=== PATIENT | male | born 1960 | race Caucasian/White ===

== ENCOUNTER 2021-08-31 17:46 | Inpatient (IN) | payer OTHER ==
[~2021-08-31] VITALS: Ht 182.9 cm; Wt 72.1 kg
[2021-08-31 17:50] VITALS: BP_SYST 147
[2021-08-31] MEDS ORDERED: ONDANSETRON HCL 4 MG/2 ML VIAL IVP ONE ×2 (19:15)
[2021-08-31] MEDS ORDERED: MAG HYDROX/AL HYDROX/SIMETH 30 ML, LIDOCAINE VISCOUS 2% 15ML (PO) 15 ML, DICYCLOMINE HC... PO ONE ×3 (19:15)
[2021-08-31 19:25] LABS: BASOPHILS % (AUTO) 0.5 % (0.0-2.0); EOSINOPHILS # (AUTO) 0.2 K/uL (0.0-0.4); EOSINOPHILS % (AUTO) 2.3 % (0.0-4.0); HEMATOCRIT 40.7 % (36-54); HEMOGLOBIN 13.8 g/dL (14.0-18.0); LYMPHOCYTES # (AUTO) 1.7 K/uL (1.0-5.5); LYMPHOCYTES % (AUTO) 23.9 % (20.5-51.5); MEAN CORPUSCULAR HEMOGLOBIN 30 pg (27-31); MEAN CORPUSCULAR HGB CONC 34 % (32-36); MEAN CORPUSCULAR VOLUME 87 fL (79.0-98.0); MONOCYTES # (AUTO) 0.6 K/uL (0.0-1.0); MONOCYTES % (AUTO) 8.9 % (1.7-9.3); NEUTROPHILS # (AUTO) 4.6 K/uL (1.8-7.7); NEUTROPHILS % (AUTO) 64.4 % (40.0-70.0); PLATELET COUNT (AUTO) 176 K/uL (130-430); RED BLOOD CELL COUNT(AUTO) 4.65 MIL/uL (4.2-6.2); RED CELL DISTRIBUTION WIDTH 13.5 % (9.0-15.0); WHITE BLOOD COUNT (AUTO) 7.2 K/uL (4.8-10.8)
[2021-08-31 19:51] LABS: ANION GAP 7 (5-15); CALCIUM 9.4 mg/dL (8.4-11.0); CHLORIDE 102 mmol/L (98-107); CREATININE 1.06 mg/dL (0.55-1.30); GLUCOSE 123 mg/dL (70-99); POTASSIUM 3.7 mmol/L (3.5-5.1); SODIUM SERUM 139 mmol/L (136-145); UREA NITROGEN, BLOOD 16 mg/dL (8-21)
[2021-08-31 19:53] LABS: GFR AFRICAN AMERICAN 92 mL/min (>90)
[2021-08-31 20:02] LABS: ALANINE AMINOTRANSFERASE 16 U/L (12-78); ALBUMIN 3.7 g/dL (3.4-4.8); ASPARTATE AMINOTRANSFERASE 20 U/L (10-37); TOTAL BILIRUBIN 0.7 mg/dL (0.0-1.0)
[2021-08-31 20:46] LABS: PROTHROMBIN TIME 9.7 SECS (9.5-12.5)
[2021-08-31] MEDS ORDERED: cloNIDine HCL 0.1 MG TABLET PO PRN (23:15)
[2021-08-31] MEDS ORDERED: ONDANSETRON HCL 4 MG/2 ML VIAL ONE (23:26)
[2021-08-31] MEDS: KETOROLAC TROMETHAMINE 15 MG VIAL IVP PRN (23:45)
[2021-09-01] MEDS ORDERED: METF-518 PO (00:27)
[2021-09-01] MEDS ORDERED: ASPI-1155 PO (00:27)
[2021-09-01] MEDS ORDERED: VITD2000 PO (00:27)
[2021-09-01] MEDS ORDERED: LIP20 PO (00:27)
[2021-09-01] MEDS ORDERED: LOSA50TA3 PO (00:27)
[2021-09-01 02:06] VITALS: BP_SYST 146
[2021-09-01] MEDS: ONDANSETRON HCL 4 MG/2 ML VIAL IVP PRN ×3 (02:27→20:28)
[2021-09-01 08:10] VITALS: BP_SYST 150
[2021-09-01] MEDS: ASPIRIN 81 MG TAB.CHEW PO SCH (08:30)
[2021-09-01] MEDS: ATORVASTATIN 20 MG TABLET PO SCH (08:31)
[2021-09-01] MEDS: LOSARTAN POTASSIUM 50 MG TABLET (COZAAR) PO SCH (08:31)
[2021-09-01] MEDS: PANTOPRAZOLE SODIUM 40 MG/VIAL (PROTONIX) IVP SCH (08:33)
[2021-09-01 12:05] VITALS: BP_SYST 146
[2021-09-01] MEDS: KETOROLAC TROMETHAMINE 15 MG VIAL IVP PRN ×2 (13:12→20:29)
[2021-09-01] MEDS ORDERED: NALOXONE HCL 0.4 MG/ML AMP (NARCAN) IVP PRN (14:00)
[2021-09-01] MEDS ORDERED: ACETAMINOPHEN 325 MG TABLET PO PRN (14:00)
[2021-09-01] MEDS ORDERED: DEXTROSE 50% JECT 50 ML DISP.SYRIN IVP PRN (14:00)
[2021-09-01] MEDS ORDERED: ONDANSETRON HCL 4 MG/2 ML VIAL IVP PRN (14:00)
[2021-09-01] MEDS ORDERED: iohexoL 350 mgI/mL, 100 ML INFUS..BTL IV ONE (14:03)
[2021-09-01 16:05] VITALS: BP_SYST 145
[2021-09-01] MEDS: INSULIN REGULAR, HUMAN 100 UNITS/ML, 10 ML VIAL (humuLIN R) SUBCUT PRN ×2 (17:01→20:45)
[2021-09-01 20:05] VITALS: BP_SYST 143
[2021-09-02 00:30] VITALS: BP_SYST 126
[2021-09-02] MEDS: MORPHINE 4 MG INJ. 4 MG/ML VIAL IVP PRN (04:51)
[2021-09-02] MEDS: ONDANSETRON HCL 4 MG/2 ML VIAL IVP PRN ×3 (04:51→22:45)
[2021-09-02 06:06] LABS: EOSINOPHILS # (AUTO) 0.2 K/uL (0.0-0.4); HEMATOCRIT 39.6 % (36-54); HEMOGLOBIN 13.4 g/dL (14.0-18.0); LYMPHOCYTES # (AUTO) 1.3 K/uL (1.0-5.5); LYMPHOCYTES % (AUTO) 26.3 % (20.5-51.5); MEAN CORPUSCULAR HEMOGLOBIN 30 pg (27-31); MEAN CORPUSCULAR HGB CONC 34 % (32-36); MEAN CORPUSCULAR VOLUME 88 fL (79.0-98.0); MONOCYTES # (AUTO) 0.5 K/uL (0.0-1.0); MONOCYTES % (AUTO) 9.1 % (1.7-9.3); NEUTROPHILS % (AUTO) 59.6 % (40.0-70.0); PLATELET COUNT (AUTO) 159 K/uL (130-430); RED BLOOD CELL COUNT(AUTO) 4.52 MIL/uL (4.2-6.2); RED CELL DISTRIBUTION WIDTH 13.4 % (9.0-15.0)
[2021-09-02 06:27] LABS: ALBUMIN 3.2 g/dL (3.4-4.8); CALCIUM 9.1 mg/dL (8.4-11.0); CREATININE 0.99 mg/dL (0.55-1.30); POTASSIUM 3.9 mmol/L (3.5-5.1); TOTAL BILIRUBIN 0.6 mg/dL (0.0-1.0)
[2021-09-02] MEDS: ATORVASTATIN 20 MG TABLET PO SCH (08:08)
[2021-09-02] MEDS: ASPIRIN 81 MG TAB.CHEW PO SCH (08:08)
[2021-09-02] MEDS: LOSARTAN POTASSIUM 50 MG TABLET (COZAAR) PO SCH (08:09)
[2021-09-02] MEDS: PANTOPRAZOLE SODIUM 40 MG/VIAL (PROTONIX) IVP SCH (08:09)
[2021-09-02 08:10] VITALS: BP_SYST 136
[2021-09-02 11:43] VITALS: BP_SYST 122
[2021-09-02] MEDS: INSULIN REGULAR, HUMAN 100 UNITS/ML, 10 ML VIAL (humuLIN R) SUBCUT PRN (11:49)
[2021-09-02 15:43] VITALS: BP_SYST 148
[2021-09-02 20:00] VITALS: BP_SYST 139
[2021-09-03] VITALS: BP_SYST 126
[2021-09-03 04:00] VITALS: BP_SYST 119
[2021-09-03 06:57] LABS: BASOPHILS % (AUTO) 0.7 % (0.0-2.0); EOSINOPHILS # (AUTO) 0.2 K/uL (0.0-0.4); EOSINOPHILS % (AUTO) 3.4 % (0.0-4.0); HEMATOCRIT 41.3 % (36-54); HEMOGLOBIN 14.1 g/dL (14.0-18.0); LYMPHOCYTES # (AUTO) 1.2 K/uL (1.0-5.5); LYMPHOCYTES % (AUTO) 23.8 % (20.5-51.5); MEAN CORPUSCULAR HEMOGLOBIN 30 pg (27-31); MEAN CORPUSCULAR HGB CONC 34 % (32-36); MEAN CORPUSCULAR VOLUME 87 fL (79.0-98.0); MONOCYTES # (AUTO) 0.5 K/uL (0.0-1.0); MONOCYTES % (AUTO) 9.1 % (1.7-9.3); NEUTROPHILS # (AUTO) 3.3 K/uL (1.8-7.7); PLATELET COUNT (AUTO) 157 K/uL (130-430); RED BLOOD CELL COUNT(AUTO) 4.72 MIL/uL (4.2-6.2); WHITE BLOOD COUNT (AUTO) 5.2 K/uL (4.8-10.8)
[2021-09-03 07:25] LABS: PROTHROMBIN TIME 9.9 SECS (9.5-12.5)
[2021-09-03 08:05] LABS: ALBUMIN 3.3 g/dL (3.4-4.8); CALCIUM 9.3 mg/dL (8.4-11.0); CREATININE 1.06 mg/dL (0.55-1.30); POTASSIUM 4.2 mmol/L (3.5-5.1); TOTAL BILIRUBIN 0.6 mg/dL (0.0-1.0)
[2021-09-03] MEDS: ASPIRIN 81 MG TAB.CHEW PO SCH (09:00)
[2021-09-03] MEDS: LOSARTAN POTASSIUM 50 MG TABLET (COZAAR) PO SCH (09:00)
[2021-09-03] MEDS: ATORVASTATIN 20 MG TABLET PO SCH (09:00)
[2021-09-03 09:12] VITALS: BP_SYST 140
[2021-09-03] MEDS: PANTOPRAZOLE SODIUM 40 MG/VIAL (PROTONIX) IVP SCH (09:44)
[2021-09-03] MEDS: ONDANSETRON HCL 4 MG/2 ML VIAL IVP PRN ×2 (09:44→22:37)
[2021-09-03] MEDS: MORPHINE 2 MG/ML INJ. SYRINGE IVP PRN (09:45)
[2021-09-03] MEDS ORDERED: SIMETHICONE 40 MG/0.6 ML ML PO ONE (13:00)
[2021-09-03] MEDS ORDERED: MIDAZOLAM HCL 5 MG/5 ML VIAL ONE (13:31)
[2021-09-03] MEDS ORDERED: MEPERIDINE 100 MG INJ. 100 MG/ML VIAL ONE (13:31)
[2021-09-03 15:58] VITALS: BP_SYST 151
[2021-09-03] MEDS ORDERED: DIATR MEGLU/DIATRIZ SOD 30 ML SOLUTION PO ONE (17:00)
[2021-09-03 20:00] VITALS: BP_SYST 141
[2021-09-04 08:15] VITALS: BP_SYST 131
[2021-09-04] MEDS: PANTOPRAZOLE SODIUM 40 MG/VIAL (PROTONIX) IVP SCH (09:32)
[2021-09-04] MEDS: LOSARTAN POTASSIUM 50 MG TABLET (COZAAR) PO SCH (09:33)
[2021-09-04] MEDS: ASPIRIN 81 MG TAB.CHEW PO SCH (09:33)
[2021-09-04] MEDS: ATORVASTATIN 20 MG TABLET PO SCH (09:33)
[2021-09-04] MEDS: MORPHINE 4 MG INJ. 4 MG/ML VIAL IVP PRN ×2 (09:35→23:23)
[2021-09-04] MEDS ORDERED: TAMSULOSIN HCL 0.4 MG CAP PO ONE (11:15)
[2021-09-04] MEDS: METOCLOPRAMIDE HCL 10 MG TABLET PO SCH ×3 (11:34→21:00)
[2021-09-04] MEDS: INSULIN REGULAR, HUMAN 100 UNITS/ML, 10 ML VIAL (humuLIN R) SUBCUT PRN ×2 (12:44→17:32)
[2021-09-04 16:55] VITALS: BP_SYST 128
[2021-09-04] MEDS ORDERED: BISACODYL 5 MG TABLET.DR (DULCOLAX) PO ONE (17:30)
[2021-09-04] MEDS ORDERED: GOLYTELY / COLYTE SOLUTION 4 LITERS PO ONE (18:00)
[2021-09-04 20:00] VITALS: BP_SYST 125
[2021-09-04] MEDS: PANTOPRAZOLE SODIUM 40 MG TAB PO SCH (21:00)
[2021-09-04] MEDS: ONDANSETRON HCL 4 MG/2 ML VIAL IVP PRN (23:23)
[2021-09-05 01:57] VITALS: BP_SYST 115
[2021-09-05 04:00] VITALS: BP_SYST 120
[2021-09-05] MEDS: METOCLOPRAMIDE HCL 10 MG TABLET PO SCH ×4 (04:51→21:55)
[2021-09-05] MEDS: INSULIN REGULAR, HUMAN 100 UNITS/ML, 10 ML VIAL (humuLIN R) SUBCUT PRN ×3 (06:52→22:03)
[2021-09-05] MEDS ORDERED: SIMETHICONE 40 MG/0.6 ML ML ONE (06:56)
[2021-09-05] MEDS ORDERED: fentaNYL CITRATE/PF 100 MCG/2 ML AMP ONE (06:56)
[2021-09-05] MEDS ORDERED: MIDAZOLAM HCL 5 MG/5 ML VIAL ONE (06:58)
[2021-09-05 07:00] LABS: BASOPHILS % (AUTO) 0.8 % (0.0-2.0); EOSINOPHILS # (AUTO) 0.2 K/uL (0.0-0.4); HEMATOCRIT 42.8 % (36-54); HEMOGLOBIN 14.6 g/dL (14.0-18.0); LYMPHOCYTES # (AUTO) 1.5 K/uL (1.0-5.5); LYMPHOCYTES % (AUTO) 29.8 % (20.5-51.5); MEAN CORPUSCULAR HEMOGLOBIN 30 pg (27-31); MEAN CORPUSCULAR HGB CONC 34 % (32-36); MEAN CORPUSCULAR VOLUME 88 fL (79.0-98.0); MONOCYTES # (AUTO) 0.6 K/uL (0.0-1.0); NEUTROPHILS # (AUTO) 2.9 K/uL (1.8-7.7); NEUTROPHILS % (AUTO) 55.4 % (40.0-70.0); PLATELET COUNT (AUTO) 161 K/uL (130-430); RED BLOOD CELL COUNT(AUTO) 4.89 MIL/uL (4.2-6.2); RED CELL DISTRIBUTION WIDTH 13.3 % (9.0-15.0); WHITE BLOOD COUNT (AUTO) 5.2 K/uL (4.8-10.8)
[2021-09-05] MEDS ORDERED: MEPERIDINE 100 MG INJ. 100 MG/ML VIAL ONE (07:43)
[2021-09-05 07:46] LABS: CALCIUM 9.2 mg/dL (8.4-11.0); CREATININE 1.07 mg/dL (0.55-1.30)
[2021-09-05 07:52] LABS: PROTHROMBIN TIME 10.2 SECS (9.5-12.5)
[2021-09-05 08:40] VITALS: BP_SYST 117
[2021-09-05] MEDS: PANTOPRAZOLE SODIUM 40 MG TAB PO SCH ×2 (09:00→21:55)
[2021-09-05] MEDS: LOSARTAN POTASSIUM 50 MG TABLET (COZAAR) PO SCH (09:00)
[2021-09-05] MEDS: TAMSULOSIN HCL 0.4 MG CAP PO SCH (09:00)
[2021-09-05] MEDS: ATORVASTATIN 20 MG TABLET PO SCH (09:00)
[2021-09-05] MEDS: ASPIRIN 81 MG TAB.CHEW PO SCH (09:00)
[2021-09-05 12:00] VITALS: BP_SYST 118
[2021-09-05] MEDS: ONDANSETRON HCL 4 MG/2 ML VIAL IVP PRN (13:01)
[2021-09-05] MEDS: MORPHINE 4 MG INJ. 4 MG/ML VIAL IVP PRN (13:03)
[2021-09-05 16:00] VITALS: BP_SYST 120
[2021-09-05] MEDS ORDERED: PRO40 PO (16:46)
[2021-09-05] MEDS ORDERED: TAMS0.4C96 PO (16:46)
[2021-09-05] MEDS ORDERED: METO-290 PO (16:46)
[2021-09-05 20:00] VITALS: BP_SYST 127
[2021-09-05] MEDS: MORPHINE 2 MG/ML INJ. SYRINGE IVP PRN (22:05)
[2021-09-06] VITALS: BP_SYST 109
[2021-09-06] MEDS: METOCLOPRAMIDE HCL 10 MG TABLET PO SCH (06:48)
[2021-09-06] MEDS: INSULIN REGULAR, HUMAN 100 UNITS/ML, 10 ML VIAL (humuLIN R) SUBCUT PRN (06:55)
[2021-09-06 08:18] VITALS: BP_SYST 130
[2021-09-06] MEDS: PANTOPRAZOLE SODIUM 40 MG TAB PO SCH (08:38)
[2021-09-06] MEDS: LOSARTAN POTASSIUM 50 MG TABLET (COZAAR) PO SCH (08:38)
[2021-09-06] MEDS: ASPIRIN 81 MG TAB.CHEW PO SCH (08:38)
[2021-09-06] MEDS: ATORVASTATIN 20 MG TABLET PO SCH (08:38)
[2021-09-06] MEDS: TAMSULOSIN HCL 0.4 MG CAP PO SCH (08:39)
[2021-09-06 09:28] VITALS: BP_SYST 130
== END 2021-09-06 11:00 | disposition home or self-care (01) | DRG 241 ==
LOC: SED 17:46 → STU 23:11 → SMU 09-02 13:42
PROVIDERS: ADMIT Family Medicine; ATTEND Family Medicine
PROC: 0DB78ZX Excision of Stomach, Pylorus, Via Natural or Artificial Opening Endoscopic, Diagnostic (ICD-10-PCS; 2021-09-03)
PROC: 0DB98ZX Excision of Duodenum, Via Natural or Artificial Opening Endoscopic, Diagnostic (ICD-10-PCS; 2021-09-03)
PROC: 0DB68ZX Excision of Stomach, Via Natural or Artificial Opening Endoscopic, Diagnostic (ICD-10-PCS; principal; 2021-09-03 16:00)
PROC: 0DBM8ZZ Excision of Descending Colon, Via Natural or Artificial Opening Endoscopic (ICD-10-PCS; 2021-09-05)
DX: K29.70 Gastritis, unspecified, without bleeding (principal); E11.51 Type 2 diabetes mellitus with diabetic peripheral angiopathy without gangrene; E04.1 Nontoxic single thyroid nodule; K21.00 Gastro-esophageal reflux disease with esophagitis, without bleeding; I10 Essential (primary) hypertension; E78.5 Hyperlipidemia, unspecified; G62.9 Polyneuropathy, unspecified; K31.7 Polyp of stomach and duodenum; K44.9 Diaphragmatic hernia without obstruction or gangrene; K63.5 Polyp of colon; Z20.822 Contact with and (suspected) exposure to COVID-19; K64.4 Residual hemorrhoidal skin tags; Z90.49 Acquired absence of other specified parts of digestive tract; Z79.899 Other long term (current) drug therapy; Z88.0 Allergy status to penicillin
CPT/HCPCS: 36415; 43239; 45378; 45385; 71045; 71275; 76376; 76536-TC; 76700-TC; 80048; 80053; 80061; 82962; 83690; 83880; 84484; 85025; 85610-TC; 85730-TC; 87081; 88172; 88173; 88305; 88307; 88312; 88313; 93005; 93306; 96374; 96375; 99285; C9113; G0378; J1815; J1885; J2001; J2175; J2250; J2270; J2405; J3010; J8597; Q9964; Q9967